=== PATIENT | male | born 1940 | race Hispanic/Latino ===

== ENCOUNTER → 2022-10-30 | Outpatient (CLI) | payer MEDICARE | END | disposition home or self-care (01) | LOC: LAB 10-26 14:05 | PROVIDERS: ATTEND Nurse Practitioner Acute Care | DX: D64.9 Anemia, unspecified (principal) | CPT/HCPCS: 82270; 82272 ==

== ENCOUNTER → 2023-02-12 | Outpatient (CLI) | payer MEDICARE ==
[2023-02-12 10:23] LABS: POTASSIUM 4.2 mmol/L (3.5-5.1)
== END | disposition home or self-care (01) ==
LOC: LAB 09:22
PROVIDERS: ATTEND Internal Medicine Nephrology
DX: I10 Essential (primary) hypertension (principal); R06.02 Shortness of breath
CPT/HCPCS: 36415; 80048; 83880

== ENCOUNTER → 2023-04-19 | Outpatient (CLI) | payer MEDICARE | END | disposition home or self-care (01) | LOC: SHCH 08:38 | PROVIDERS: ATTEND Internal Medicine Cardiovascular Disease | DX: Q27.1 Congenital renal artery stenosis (principal) | CPT/HCPCS: 93975 ==

== ENCOUNTER → 2023-12-17 | Outpatient (CLI) | payer MEDICARE | END | disposition home or self-care (01) | LOC: SHCH 15:02 | PROVIDERS: ATTEND Internal Medicine Cardiovascular Disease | DX: I08.8 Other rheumatic multiple valve diseases (principal); I25.10 Atherosclerotic heart disease of native coronary artery without angina pectoris | CPT/HCPCS: 93306 ==

== ENCOUNTER → 2024-06-07 | Outpatient (CLI) | payer MEDICARE ==
--- NOTE | 2024-06-08 23:07 | HMCSR ---
APPROVED REPORT Bilateral Upper Extremity Venous Study for DVT. Indications Upper Extremity Edema: Vein Imaging IJV (L): Normal flow, augmentation and compression. No evidence of DVT. SCV (L): Normal flow, augmentation and compression. No evidence of DVT. Axillary (L): Normal flow, augmentation and compression. No evidence of DVT. Brachial (L): Normal flow, augmentation and compression. No evidence of DVT. Basilic (L): Normal flow, augmentation and compression. No evidence of DVT. Cephalic (L): Normal flow, augmentation and compression. No evidence of DVT. Radial (L): Normal flow, augmentation and compression. No evidence of DVT. Ulnar (L): Normal flow, augmentation and compression. No evidence of DVT. IJV (R): Normal flow, augm entation and compression. No evidence of DVT. SCV (R): Normal flow, augmentation and compression. No evidence of DVT. Axillary (R): Normal flow, augmentation and compression. No evidence of DVT. Brachial (R): Normal flow, augmentation and compression. No evidence of DVT. Basilic (R): Normal flow, augmentation and compression. No evidence of DVT. Cephalic (R): Normal flow, augmentation and compression. No evidence of DVT. Radial (R): Normal flow, augmentation and compression. No evidence of DVT. Ulnar (R): Normal flow, augmentation and compression. No evidence of DVT. Technologist Impression Deep veins of the bilateral upper extremity appear patent and compressible without thrombus. Conclusion Deep veins of the bilateral upper extremity appear patent and compressible without thrombus. Conclusion Deep veins of the bilateral upper extremity appear patent and compressible without thrombus.
== END | disposition home or self-care (01) ==
LOC: SHCH 12:55
PROVIDERS: ATTEND Internal Medicine Cardiovascular Disease
DX: R60.9 Edema, unspecified (principal)
CPT/HCPCS: 93970

== ENCOUNTER → 2024-07-02 | Outpatient (CLI) | payer MEDICARE ==
[2024-07-02 16:29] LABS: CREATININE 3.3 mg/dL (0.5-1.3)
[2024-07-02 16:37] LABS: POTASSIUM 2.9 mmol/L (3.5-5.1)
== END | disposition home or self-care (01) ==
LOC: LAB 14:09
PROVIDERS: ATTEND Internal Medicine Cardiovascular Disease
DX: I10 Essential (primary) hypertension (principal); I25.10 Atherosclerotic heart disease of native coronary artery without angina pectoris
CPT/HCPCS: 36415; 80048

== ENCOUNTER → 2024-07-07 | Outpatient (CLI) | payer MEDICARE ==
[2024-07-07 16:52] LABS: CREATININE 3.4 mg/dL (0.5-1.3); POTASSIUM 4.4 mmol/L (3.5-5.1)
== END | disposition home or self-care (01) ==
LOC: LAB 13:13
PROVIDERS: ATTEND Nurse Practitioner Acute Care
DX: I25.10 Atherosclerotic heart disease of native coronary artery without angina pectoris (principal); I10 Essential (primary) hypertension
CPT/HCPCS: 36415; 80048